=== PATIENT | male | born 1990 | race Asian ===

== ENCOUNTER 2020-09-02 17:27 | Emergency (ER) | payer MEDICAID, SELFPAY ==
[2020-09-02 17:56] VITALS: BP 131/85; PULSE 79; RESP 16; TEMP 37.1; O2SAT 98; BMI 19.0
--- NOTE | 2020-09-02 18:43 | ED.URI ---
HPI - URI/Sore Throat General Chief Complaint: Upper Respiratory Symptoms <Maycol Proctor NP - Last Filed: 09/02/20 18:48> Stated Complaint: FLU LIKE SYMPTOMS <MARIANO Resendez Last Filed: 09/02/20 18:48> Time Seen by Provider: 09/02/20 18:43 <Maycol Proctor NP - Last Filed: 09/02/20 18:48> Source: patient <Maycol Proctor NP - Last Filed: 09/02/20 18:48> Mode of arrival: ambulatory <Maycol Proctor NP - Last Filed: 09/02/20 18:48> Limitations: no limitations <MARIANO Resendez Last Filed: 09/02/20 18:48> History of Present Illness MD elicited complaint: rhinorrhea, nasal congestion and sinus pain <MARIANO Resendez Last Filed: 09/02/20 18:48> Severity: mild <MARIANO Resendez Last Filed: 09/02/20 18:48> Description of mucous: clear and watery <Maycol Proctor NP - Last Filed: 09/02/20 18:48> Able to tolerate fluids by mouth: Yes <MARIANO Resendez Last Filed: 09/02/20 18:48> Exacerbating factors: nothing <MARIANO Resendez Last Filed: 09/02/20 18:48> Relieving factors: OTC cold medicine and nasal spray <MARIANO Resendez Last Filed: 09/02/20 18:48> Associated symptoms: denies other symptoms <MARIANO Resendez Last Filed: 09/02/20 18:48> Treatments prior to arrival: acetaminophen <MARIANO Resendez Last Filed: 09/02/20 18:48> Review of Systems Review of Systems: Constitutional: No Weight loss, No Fever, No Chills, No Night Sweats, No Fatigue, No Malaise ENT/Mouth: No Hearing loss, No Ear Pain, Eyes: No Eye Pain, No Swelling, No Redness, No Foreign Body, No Discharge, No Vision Changes Cardiovascular: No Chest Pain, No SOB, No Dyspnea on Exertion, No Orthopnea, No Edema, No Palpitations Respiratory: No Cough, No Sputum, No Wheezing, No Smoke Exposure, No Dyspnea Gastrointestinal: No Nausea, No Vomiting, No Diarrhea, No Constipation, No abdominal Pain, No Hematochezia, No Melena Genitourinary: no irregular bleeding, No Dysuria, No Urinary Frequency, No Hematuria, No Urinary Incontinence, No Urgency, No Flank Pain, No Urinary Flow Changes, No Hesitancy Musculoskeletal: No joint pain, No Myalgias, No Joint Swelling Skin: No Skin Lesions, No rash Neuro: No Weakness, No Numbness, No Paresthesias, No Loss of Consciousness, No Dizziness, No Headache Psych: No Anxiety/Panic, No Depression, No SI/HI/AH/VH, No Social Issues, Heme/Lymph: No Bruising, No Bleeding,No Lymphadenopathy Endocrine: No Polyuria, No Polydipsia, No Temperature Intolerance <Maycol Proctor NP - Last Filed: 09/02/20 18:48> Yes all other systems are reviewed and are negative <Maycol Proctor NP - Last Filed: 09/02/20 18:48> REPLACED BY [facility] Past Medical History Attestation statement: The following information was validated with the patient. <Maycol Proctor NP - Last Filed: 09/02/20 18:48> Medical History: Medical History (Updated 09/03/20 @ 00:00 by Basia Wiseman) No known health problems <Maycol Proctor NP - Last Filed: 09/02/20 18:48> Social History Social History: Social History Alcohol intake: never Smoked in Last 30 Days: No Use of substances other than those prescribed or required for medical reasons: No Advance Directives: No Advance Directives Information Provided: Yes <Maycol Proctor NP - Last Filed: 09/02/20 18:48> Physical Exam Vital Signs and I&O and Narrative: Vital Signs and I&O: Vital Signs Temp 98.8 F 09/02/20 17:56 Pulse 79 09/02/20 17:56 Resp 16 09/02/20 17:56 BP 131/85 09/02/20 17:56 Pulse Ox 98 09/02/20 17:56 Intake & Output 09/02/20 09/02/20 09/03/20 06:59 18:59 06:59 Weight 56.699 kg Body Mass Index 19.0 <Maycol Proctor NP - Last Filed: 09/02/20 18:48> Vital Signs and I&O: Vital Signs Temp 98.8 F 09/02/20 17:56 Pulse 79 09/02/20 17:56 Resp 16 09/02/20 17:56 BP 131/85 09/02/20 17:56 Pulse Ox 98 09/02/20 17:56 Intake & Output 09/02/20 09/02/20 09/03/20 06:59 18:59 06:59 Weight 56.699 kg Body Mass Index 19.0 <Walter Soriano DO - Last Filed: 09/03/20 02:38> Const: General: cooperative and healthy appearing; No acute distress or intoxicated appearing <Maycoldarin Proctor NP - Last Filed: 09/02/20 18:48> Nutritional Appearance: average body habitus <[facility] MARIANO Proctor - Last Filed: 09/02/20 18:48> Orientation/consciousness: patient oriented x3 <[facility] MARIANO Proctor - Last Filed: 09/02/20 18:48> HENMT: Head: Yes normal to inspection <[facility] MARIANO Proctor - Last Filed: 09/02/20 18:48> Ears: hearing grossly normal bilaterally <[facility] MARIANO Proctor - Last Filed: 09/02/20 18:48> Face and sinus: Yes abnormal transillumination of sinuses <[facility] MARIANO Proctor - Last Filed: 09/02/20 18:48> Eyes: General: appearance normal, both eyes and all related structures <[facility] MARIANO Proctor - Last Filed: 09/02/20 18:48> Visual Gordon: normal visual gordon by confrontation <[facility] MARIANO Proctor - Last Filed: 09/02/20 18:48> Neck: Neck: Yes normal visual inspection, No positive Brudzinski's sign, No positive Kernig's sign and No tender <[facility] MARIANO Proctor - Last Filed: 09/02/20 18:48> Thyroid: Thyroid normal <[facility] AMRIANO Proctor - Last Filed: 09/02/20 18:48> Chest: Chest palpation & inspection: normal inspection of the chest <[facility] MARIANO Proctor - Last Filed: 09/02/20 18:48> Resp: Effort & Inspection: normal respiratory effort <Maycol Proctor NP - Last Filed: 09/02/20 18:48> Cardio: Jugular venous distension: no JVD <Maycol MARIANO Proctor - Last Filed: 09/02/20 18:48> Skin: General skin exam: no rashes or lesions noted <Maycol Proctor NP - Last Filed: 09/02/20 18:48> Neuro: General: patient oriented x3 <[facility] Esthela SCREEN PRINTING PRESS OPERATOR - Last Filed: 09/02/20 18:48> Extrem: General: Yes normal to inspection <[facility] Esthela SCREEN PRINTING PRESS OPERATOR - Last Filed: 09/02/20 18:48> Course Course Course Narrative: COVID-19 test done/pending. <Maycol Proctor SCREEN PRINTING PRESS OPERATOR - Last Filed: 09/02/20 18:48> MDM - URI/Sore Throat Differential Diagnosis Differential diagnosis: Likely upper respiratory infection, sinusitis and viral infection; Unlikely otitis media, bronchitis, influenza and pharyngitis <[facility] Proctor SCREEN PRINTING PRESS OPERATOR - Last Filed: 09/02/20 18:48> Discharge Plan Discharge Clinical Impression: Upper respiratory infection <Maycol Esthela SCREEN PRINTING PRESS OPERATOR - Last Filed: 09/02/20 18:48> Patient Disposition: Home, Self-Care <Maycol Proctor SCREEN PRINTING PRESS OPERATOR - Last Filed: 09/02/20 18:48> Instructions: Viral Syndrome (ED) <Maycol Proctor SCREEN PRINTING PRESS OPERATOR - Last Filed: 09/02/20 18:48> Additional Instructions: Based on your symptoms and history we have sent a COVID-19. Although your RESULT IS PENDING at this time. RESULTS should return within 72 hours. At this time you will be contacted with either NEGATIVE OR POSITIVE results. -Please wait until we contact you for your results. At this time you will be okay for discharge. Please plan for self quarantine for up to 14 days. Do not expose yourself to others. You may not go to work. If testing does come back negative you may return to activities as long as you are no longer having any symptoms for at least 3 days. Please continue to follow cold instructions and wash your hands frequently. You may take Tylenol as directed on the bottle for pain or fever. Patient seen in the emergency department on 05/22/2020 and should be excused from work until negative test results AND until 72 hours without any symptoms AND at least 10 days have passed since symptoms first appeared or since last exposure to COVID-19 positive patient CDC Guidelines for home isolation: - Stay away from others - WEAR A MASK if you are sick AND STAY HOME - Cover your mouth and nose with a tissue when you cough or sneeze. Dispose of tissues in a lined trash can and wash your hands immediately with soap and water for at least 20 seconds. If soap and water are not available, clean hands with alcohol-based hand machine sand mixer that contains at least 60% alcohol. - Clean your hands often with soap and water for at least 20 seconds - Avoid touching your eyes, nose and mouth with unwashed hands - Do not share dishes, drinking glasses, cups, eating utensils, towels, or bedding with other people in your home. After using these items, wash them thoroughly with soap and water or put in the respiratory care specialist. - Clean high-touch surfaces in your isolation area ( sick room and bathroom) every day; let a caregiver clean and disinfect high-touch surfaces in other areas of the home. Clean the area or item with soap and water or another detergent if it is dirty. Then, use a household disinfectant. - Limit contact with pets and animals: If you must care for a pet, wash your hands before and after interacting with them <Maycol Proctor NP - Last Filed: 09/02/20 18:48> Stand Alone Forms: Work/School Release <Maycol Proctor NP - Last Filed: 09/02/20 18:48> Interventions: ED Discharge Assessment Last Done: 09/02/20 19:16 <Maycol Proctor NP - Last Filed: 09/02/20 18:48> Discharge Date/Time: 09/02/20 19:10 <Maycol Proctor NP - Last Filed: 09/02/20 18:48>
--- NOTE | 2020-09-02 19:15 | PC.NURSE ---
HEAD TO TOE AND OTHER ASSESMENT N/A FOR PT. PT IS HERE FOR COVID TESTING ONLY.
== END 2020-09-02 19:10 | disposition home or self-care (01) ==
PROVIDERS: Emergency Provider Emergency Medicine
DX: J06.9 Acute upper respiratory infection, unspecified (principal); Z20.828 Contact with and (suspected) exposure to other viral communicable diseases
CPT/HCPCS: 87635; 99283; 99284

== ENCOUNTER 2022-01-28 02:02 | Emergency (ER) | payer MEDICAID, SELFPAY ==
--- NOTE | 2022-01-28 | ECG_ITS ---
Test Reason : CP Blood Pressure : / mmHG Vent. Rate : 070 BPM Atrial Rate : 070 BPM P-R Int : 176 ms QRS Dur : 082 ms QT Int : 444 ms P-R-T Axes : 047 071 051 degrees QTc Int : 479 ms Normal sinus rhythm Normal ECG No previous ECGs available Referred By: Generic ED Physician Electronically Signed By:Taras Wheat
--- NOTE | 2022-01-28 02:08 | ECG_ITS ---
Test Reason : REPEAT Blood Pressure : / mmHG Vent. Rate : 059 BPM Atrial Rate : 059 BPM P-R Int : 194 ms QRS Dur : 090 ms QT Int : 494 ms P-R-T Axes : 045 072 050 degrees QTc Int : 489 ms Sinus bradycardia Prolonged QT Abnormal ECG When compared with ECG of 28-JAN-2022 02:11, No significant change was found Referred By: Meghan Hanley Electronically Signed By:Taras Wheat
[2022-01-28 02:09] VITALS: BP 150/101; BP 154/101; PULSE 75; PULSE 80; RESP 16; TEMP 37.1; O2SAT 98; BMI 24.4
[2022-01-28 02:15] VITALS: PULSE 66; RESP 16
[2022-01-28 02:36] LABS: Basophils Percent Auto 0.4 % (0-2); Eosinophils Absolute Auto 0.1 X10*3/uL (0.0-0.4); Eosinophils Percent Auto 1.1 % (0-4); Hematocrit 40.8 % (37.0-47.0); Hemoglobin 13.7 g/dl (12.0-16.0); Imm Gran Abs Auto 0.03 X10*3/uL (0.00-0.03); Imm Gran Pct Auto 0.3 % (0.0-0.4); Lymphocytes Absolute Auto 2.6 X10*3/uL (1.2-4.9); Lymphocytes Percent Auto 26.5 % (20-40); MANUAL DIFF FLAG NO; Mean Corpuscular HGB Conc 33.6 g/dl (31.0-35.0); Mean Corpuscular Hemoglobin 31.2 pg (27.0-33.0); Mean Corpuscular Volume 92.9 fL (80.0-98.0); Mean Platelet Volume 9.9 fL (9.4-12.3); Monocytes Absolute Auto 0.5 X10*3/uL (0.1-1.2); Monocytes Percent Auto 5.1 % (2-11); Neutrophils Absolute Auto 6.6 x10*3/uL (2.0-8.3); Neutrophils Percent Auto 66.6 % (45-73); Platelet Count 332 X10*3/uL (160-400); Red Blood Count 4.39 X10*6/uL (4.20-5.50); Red Cell Distribution Width 12.3 % (11.0-16.0); White Blood Count 9.8 X10*3/uL (4.8-10.8)
[2022-01-28 02:42] LABS: Prothrombin Time 11.8 SEC (9.9-13.0)
[2022-01-28 02:54] LABS: Alanine Aminotransferase 26 U/L (0-31); Albumin Level 4.4 g/dL (3.5-5.0); Alkaline Phosphatase 78 U/L (39-117); Anion Gap 11 (12-20); Aspartate Amino Transferase 18 U/L (5-31); Bilirubin Total 0.5 mg/dL (0.0-1.0); Blood Urea Nitrogen 8 mg/dL (9-16); Calcium 9.9 mg/dL (8.4-10.2); Carbon Dioxide 26 mmol/L (22-29); Chloride 105 mmol/L (96-108); Creatinine Clr Calc Pharmacy 99.5; Estimated Glomerular Filt Rate > 60; Glucose Random 101 mg/dL (60-115); Lipase 21 U/L (8-78); Potassium 3.7 mmol/L (3.3-5.1); Sodium 138 mmol/L (135-145); Total Protein 7.4 g/dL (6.5-8.0)
[2022-01-28 02:58] LABS: Troponin-I High Sensitivity 7.5 ng/L (<3.5-17.0)
[2022-01-28 03:01] LABS: HCG Quantitative < 2 mIU/mL
--- NOTE | 2022-01-28 03:27 | ED.CHESTPAIN ---
HPI - Chest Pain General Chief Complaint: Chest Pain Stated Complaint: chest pain Time Seen by Provider: 01/28/22 02:18 Source: patient Mode of arrival: EMS History of Present Illness HPI narrative: 31-year-old female without significant past medical history other than preeclampsia and is 4 months . Patient states that she awoke with severe 10/10 chest pain that was sharp in nature, substernal, and radiated upwards into her neck. She denies associated dizziness, shortness of breath, nausea and states that EN route she was given medications and has had mild improvement in her pain. Patient currently continues to take medication for preeclampsia, denies any calf swelling, denies any history of acid reflux/GERD, and denies any associated positional changes which make the chest pain worse. Patient does state that the pain is reproducible on palpation and reports position change. Related Data Allergies Allergy/AdvReac Type Severity Reaction Status Date / Time Penicillins AdvReac Nausea Verified 01/28/22 02:21 berries Allergy Swelling Uncoded 01/28/22 02:21 Review of Systems Review of Systems: Pertinent positives and negatives as stated in HPI 10 point review of symptoms is otherwise negative. PMFSH Past Medical History Source: nursing notes reviewed Medical History No known health problems Social History Social History Alcohol intake: never Advance Directives: No Advance Directives Information Provided: Yes Physical Exam Vital Signs: Vital Signs: Last Vital Signs Temp 98.7 F 01/28/22 02:09 Pulse 63 01/28/22 05:23 Resp 14 01/28/22 05:23 BP 145/93 H 01/28/22 05:23 Pulse Ox 100 01/28/22 05:23 BMI result Body Mass Index 24.4 VITAL SIGNS: Reviewed. GENERAL: Well developed, well nourished, in no acute distress. HEAD: Normocephalic/atraumatic EYES: PERRLA, EOMI EARS: Ext canals without abnormality, TMs non-bulging and non-erythematous NOSE: Nares patent bilateral OROPHARYNX: no oral lesions noted, posterior pharynx clear NECK: Supple, no adenopathy LUNGS: Normal breath sounds. No adventitious sounds or accessory muscle use. SpO2<98> CARDIOVASCULAR: Regular rate and rhythm without noted murmurs, no JVD or lower extremity edema. ABDOMEN: Soft, non-tender, non-distended with bowel sounds. MUSCULOSKELETAL: No tenderness, deformities, or effusions noted on gross inspection. EXTREMITIES: No cyanosis, clubbing or edema. SKIN: Inspection of the skin reveals no rashes NEUROLOGIC: Alert and oriented x 4. Strength and sensation to light touch were grossly intact x 4. Course Course Course Narrative: 31-year-old female with history and clinical presentation consistent with possible pericarditis, pancreatitis, but lower clinical suspicion for cardiac or pneumonia. Although it is documented the patient has shortness of breath and tongue as well as lip swelling, patient reports that this is due to significant crying due to her symptoms on awakening. Review of all investigations negative for acute findings in although high sensitivity troponins were noted to be detectable serial troponins were otherwise flat and serial EKG did not show concerning features. All results and findings were discussed with patient at bedside and she states significant improvement of her discomfort and recommendations are that she follow-up with her primary care provider for re-evaluation and further outpatient management. At this time low clinical suspicion for pericarditis/myocarditis. MDM - Chest Pain Lab Data Result diagrams: 01/28/22 02:31 01/28/22 02:31 Labs: Lab Results 01/28/22 01/28/22 01/28/22 Range/Units 02:31 02:31 02:31 WBC 9.8 (4.8-10.8) X10*3/uL RBC 4.39 (4.20-5.50) X10*6/uL Hgb 13.7 (12.0-16.0) g/dl Hct 40.8 (37.0-47.0) % MCV 92.9 (80.0-98.0) fL MCH 31.2 (27.0-33.0) pg MCHC 33.6 (31.0-35.0) g/dl RDW 12.3 (11.0-16.0) % Plt Count 332 (160-400) X10*3/uL MPV 9.9 (9.4-12.3) fL Immature Gran % (Auto) 0.3 (0.0-0.4) % Neut % (Auto) 66.6 (45-73) % Lymph % (Auto) 26.5 (20-40) % [place] % (Auto) 5.1 (2-11) % Eos % (Auto) 1.1 (0-4) % Baso % (Auto) 0.4 (0-2) % Lymph # (Auto) 2.6 (1.2-4.9) X10*3/uL [place] # (Auto) 0.5 (0.1-1.2) X10*3/uL Eos # (Auto) 0.1 (0.0-0.4) X10*3/uL Baso # (Auto) 0.0 (0.0-0.2) X10*3/uL Abs Immat Gran (auto) 0.03 (0.00-0.03) X10*3/uL Absolute Neuts (auto) 6.6 (2.0-8.3) x10*3/uL Absolute Nucleated RBC 0.000 (0.0-0.012) X10*3/uL Nucleated RBC % (auto) 0.0 (0.0-0.2) /100WBC PT 11.8 (9.9-13.0) SEC INR 1.0 (0.9-1.1) D-Dimer High Sensitivty < 150 NG/ML Sodium 138 (135-145) mmol/L Potassium 3.7 (3.3-5.1) mmol/L Chloride 105 (96-108) mmol/L Carbon Dioxide 26 (22-29) mmol/L Anion Gap 11 L (12-20) BUN 8 L (9-16) mg/dL Creatinine 0.64 (0.5-1.4) mg/dL Estim Creat Clear Calc 99.5 Estimated GFR > 60 Random Glucose 101 (60-115) mg/dL Calcium 9.9 (8.4-10.2) mg/dL Total Bilirubin 0.5 (0.0-1.0) mg/dL AST 18 (5-31) U/L ALT 26 (0-31) U/L Alkaline Phosphatase 78 (39-117) U/L Troponin I High Sens (<3.5-17.0) ng/L Total Protein 7.4 (6.5-8.0) g/dL Albumin 4.4 (3.5-5.0) g/dL Lipase 21 (8-78) U/L Beta HCG, Quant < 2 mIU/mL 01/28/22 01/28/22 Range/Units 02:31 05:23 WBC (4.8-10.8) X10*3/uL RBC (4.20-5.50) X10*6/uL Hgb (12.0-16.0) g/dl Hct (37.0-47.0) % MCV (80.0-98.0) fL MCH (27.0-33.0) pg MCHC (31.0-35.0) g/dl RDW (11.0-16.0) % Plt Count (160-400) X10*3/uL MPV (9.4-12.3) fL Immature Gran % (Auto) (0.0-0.4) % Neut % (Auto) (45-73) % Lymph % (Auto) (20-40) % [place] % (Auto) (2-11) % Eos % (Auto) (0-4) % Baso % (Auto) (0-2) % Lymph # (Auto) (1.2-4.9) X10*3/uL [place] # (Auto) (0.1-1.2) X10*3/uL Eos # (Auto) (0.0-0.4) X10*3/uL Baso # (Auto) (0.0-0.2) X10*3/uL Abs Immat Gran (auto) (0.00-0.03) X10*3/uL Absolute Neuts (auto) (2.0-8.3) x10*3/uL Absolute Nucleated RBC (0.0-0.012) X10*3/uL Nucleated RBC % (auto) (0.0-0.2) /100WBC PT (9.9-13.0) SEC INR (0.9-1.1) D-Dimer High Sensitivty NG/ML Sodium (135-145) mmol/L Potassium (3.3-5.1) mmol/L Chloride (96-108) mmol/L Carbon Dioxide (22-29) mmol/L Anion Gap (12-20) BUN (9-16) mg/dL Creatinine (0.5-1.4) mg/dL Estim Creat Clear Calc Estimated GFR Random Glucose (60-115) mg/dL Calcium (8.4-10.2) mg/dL Total Bilirubin (0.0-1.0) mg/dL AST (5-31) U/L ALT (0-31) U/L Alkaline Phosphatase (39-117) U/L Troponin I High Sens 7.5 4.5 (<3.5-17.0) ng/L Total Protein (6.5-8.0) g/dL Albumin (3.5-5.0) g/dL Lipase (8-78) U/L Beta HCG, Quant mIU/mL ECG Data ECG #1: Attestation: I personally reviewed and interpreted this ECG as follows: Prior ECG tracings: not available for review Interpretation: Normal sinus rhythm, HR-70, no STEMI, [place]/QRS/QTC are within normal limits. Discharge Plan Discharge Clinical Impression: Atypical chest pain Patient Disposition: Home, Self-Care Instructions: Esophageal Spasm (ED), Chest Pain (DC) Additional Instructions: 1. Resume all home medications as prescribed. 2. This may have been a possible esophageal spasm, and this should be followed up further with your primary care provider. Return to the ER for any worsening symptoms.
[2022-01-28 04:04] VITALS: BP 148/98; PULSE 72; RESP 20; O2SAT 98
[2022-01-28] MEDS: Lidocaine HCl Viscous 2 % 15 ML SOLUTION 10 ML MUCOUS MEM (04:24)
[2022-01-28] MEDS: Magnesium Hydrox/Alum Hydrox 30 ML ORAL.SUSP PO (04:24)
[2022-01-28 04:51] LABS: D Dimer High Sensitivity < 150 NG/ML
[2022-01-28 05:23] VITALS: BP 145/93; PULSE 63; RESP 14; O2SAT 100
[2022-01-28 05:46] LABS: Troponin-I High Sensitivity 4.5 ng/L (<3.5-17.0)
== END 2022-01-28 06:13 | disposition home or self-care (01) ==
PROVIDERS: Emergency Provider Student in an Organized Health Care Education/Training Program
DX: R07.89 Other chest pain (principal); M54.2 Cervicalgia; Z79.899 Other long term (current) drug therapy
CPT/HCPCS: 36415; 80053; 83690; 84484; 84702; 85025; 85379; 85610; 93005; 99283; 99284